=== PATIENT | male | born 1935 | race Caucasian/White ===

== ENCOUNTER 2016-04-26 08:17 | Inpatient (IN) ==
--- NOTE | 2016-04-26 08:29 | Emergency Department Note ---
Disposition Clinical Impression: Small bowel obstruction Disposition: Admitted As Inpatient Condition: Fair Referrals: Bobby Collado Jr, MD [Primary Care Provider] - Time of Disposition: 10:01 Abdominal Pain HPI - General Stated Complaint: Constipation Time Seen by Provider: 04/26/16 08:24 Source: patient Mode of arrival: ambulatory Limitations: no limitations Nursing Notes Reviewed: Yes Vital Signs Reviewed: Yes - History of Present Illness HPI Narrative: 81-year-old male who comes in complaining of abdominal pain. Patient had a previous history of bowel obstruction requiring surgery about a year and a half ago. Said increasing pain over the last day. The patient states he has had multiple abdominal surgeries and has adhesions. Review of records show that the patient had abdominal surgery in October 2014 for small bowel obstruction. Pt Subjective Complaint: abdominal pain Onset (ago): day(s) Consistency: constant Location: diffuse Pain Severity: moderate Quality: aching Radiation: none Migration to: no migration Improves with: nothing Worsens with: nothing Associated symptoms: Reports: nausea, constipation - Related Data Home Medications Medication Instructions Recorded Confirmed Allopurinol [Zyloprim 300 MG] 300 mg PO Q48H 10/08/14 11/28/15 Allopurinol [Zyloprim] 600 mg PO Q48H 10/08/14 11/28/15 Amitriptyline [Elavil] 50 mg PO HS 10/08/14 11/28/15 Aspirin 81 mg PO DAILY 10/08/14 11/28/15 Calcitriol [Rocaltrol] 0.5 mcg PO DAILY 10/08/14 11/28/15 ClonazePAM [Klonopin] 1 mg PO HS 10/08/14 11/28/15 Furosemide [Lasix] 40 mg PO DAILY 10/08/14 11/28/15 Glimepiride [Amaryl] 4 mg PO DAILY 10/08/14 11/28/15 Linagliptin [Tradjenta] 5 mg PO DAILY 10/08/14 11/28/15 Simvastatin [Zocor] 10 mg PO DAILY 10/08/14 11/28/15 Warfarin [Coumadin] 3 mg PO AD 10/08/14 11/28/15 Warfarin [Coumadin] 6 mg PO AD 10/08/14 11/28/15 Amlodipine [Norvasc] 5 mg PO DAILY 11/28/15 11/28/15 Hydrocodone/Acetaminophen 1 tab PO Q8H PRN 11/28/15 11/28/15 [Hydrocodon-Acetaminophen 5-325] Insulin Glargine,Hum.rec.anlog 56 unit SQ HS 11/28/15 11/28/15 [Lantus Solostar] Previous Rx's Medication Instructions Recorded Lisinopril [Zestril] 5 mg PO DAILY #30 tablet 10/22/14 Metoprolol [Lopressor] 25 mg PO BID #60 tablet 10/22/14 Cephalexin [Keflex] 500 mg PO BID #20 capsule 12/01/15 Tamsulosin [Flomax] 0.4 mg PO DAILY #30 capsule 12/01/15 Allergies Allergy/AdvReac Type Severity Reaction Status Date / Time ibuprofen [From Motrin] Allergy Itching Verified 10/08/14 08:50 Constitutional: Denies: fever, chills, weakness, weight change Eyes: Denies: eye pain, eye discharge, vision change ENT ED: Denies: ear pain, throat pain, dental pain, hearing loss, epistaxis, congestion, dysphagia Cardiovascular: Denies: chest pain, palpitations, dyspnea on exertion, edema, syncope Respiratory: Denies: cough, dyspnea, wheezes, hemoptysis, stridor Gastrointestinal: Reports: abdominal pain, constipation. Denies: nausea, vomiting, diarrhea, hematemesis, melena, hematochezia Genitourinary: Denies: urgency, dysuria, frequency, hematuria Musculoskeletal: Denies: back pain, neck pain, arthralgia, myalgia Integumentary: Denies: rash, abrasion, lesions Neurological: Denies: headache, weakness, numbness, paresthesias, confusion, abnormal gait, vertigo Psychiatric: Denies: anxiety, depression, suicidal thoughts, homicidal thoughts , auditory hallucinations, visual hallucinations Endocrine: Denies: fatigue Hematological/Lymphatic: Denies: easy bleeding, easy bruising Allergic/Immunologic: Denies: facial swelling, urticaria Abdominal Pain PMH - Past Medical History Medical history: Reports: atrial fibrillation, CHF, CVA, diabetes, hyperlipidemia, hypertension, myocardial infarction, renal disease, other Psychiatric history: Reports: no psych history - Social History Smoking status: Former smoker Alcohol use: Reports: none Drug use: Reports: none Physical Exam - General Limitations: no limitations General appearance: alert, in no apparent distress - Head Head exam: atraumatic, normocephalic, normal inspection - Eye Eye exam: Present: normal appearance, PERRL, EOMI - ENT ENT exam: normal exam, normal oropharynx, mucous membranes moist - Neck Neck exam: Present: normal inspection, full ROM, trachea midline - Chest Chest inspection: Present: normal inspection, symmetric chest wall rise - Respiratory Respiratory exam: Present: normal lung sounds bilaterally - Cardiovascular Cardiovascular exam: Present: regular rate, normal rhythm, normal heart sounds - Abdominal Exam Abdominal exam: Present: tenderness. Absent: guarding, rebound Abdominal tenderness: Present: diffuse - Extremities Exam Extremities exam: Present: normal inspection, full ROM. Absent: tenderness, pedal edema - Expanded Lower Extremity Exam Neurovascular/Tendon exam: Absent: motor deficit, sensory deficit, tendon deficit Gait: observed and normal - Back Exam Back exam: Present: normal inspection, full ROM. Absent: tenderness - Neurological Exam Neurological exam: Present: alert, oriented X3 - Psychiatric Psychiatric exam: Present: normal affect, normal mood - Skin Skin exam: Present: warm, dry, intact, normal color Course - Reevaluation(s) Reevaluation #1: 81-year-old gentleman with a history of previous small bowel obstruction secondary to adhesions comes in with increasing abdominal pain. CT is consistent with a small bowel obstruction likely related to adhesions. Surgical consultation obtained patient will be admitted to the hospitalist. Time: 09:59 - Consultations Consultation #1: Discussed with Dr. Reyes, admitted to hospitalist he will consult. Time: 09:58 Consultation #2: Discussed with Dr. Salcedo, admit. Time: 10:01 Vital Signs Temperature 97.4 F L 04/26/16 08:26 Pulse Rate 103 04/26/16 08:26 Respiratory Rate 18 04/26/16 08:26 Blood Pressure 155/95 04/26/16 08:26 O2 Sat by Pulse Oximetry 96 04/26/16 08:26 Temperature 97.4 F L 04/26/16 08:26 Pulse Rate 103 04/26/16 08:26 Respiratory Rate 18 04/26/16 08:26 Blood Pressure 155/95 04/26/16 08:26 O2 Sat by Pulse Oximetry 96 04/26/16 08:26 Oxygen Delivery Oxygen Delivery Room Air Abdominal Pain - Lab Data Lab results reviewed: Yes I reviewed the patient's lab results. Result diagrams: 04/26/16 08:41 04/26/16 08:41 Lab Results 04/26/16 04/26/16 04/26/16 Range/Units 08:26 08:41 08:41 WBC 15.2 H (4.3-11.1) K/mcL RBC 5.99 H (4.19-5.50) M/mcL Hgb 18.0 H (12.9-16.9) g/dL Hct 54.4 H (37.5-50.1) % MCV 90.8 (83.0-100.0) fL MCH 30.1 (28.0-33.3) pg MCHC 33.1 (31.6-35.5) g/dL RDW 15.8 H (11.5-14.5) % Plt Count 155 (140-400) K/mcL MPV 9.9 (9.4-12.4) fL Immature Gran % 0.5 (0-4) % Seg Neutrophils % 92.1 % Lymphocytes % 3.8 % Monocytes % 3.3 % Eosinophils % 0.0 % Basophils % 0.3 % Neutrophils # 14.0 H (1.6-8.9) K/mcL Lymphocytes # 0.6 (0.6-4.6) K/mcL Monocytes # 0.5 (0.0-1.3) K/mcL Eosinophils # 0.0 (0.0-0.6) K/mcL Basophils # 0.1 (0.0-0.2) K/mcL Sodium 136 (136-145) mEq/L Potassium 4.5 (3.5-4.5) mEq/L Chloride 101 (98-109) mEq/L Carbon Dioxide 19 (19-29) mEq/L BUN 27 H (8-26) mg/dL Creatinine 2.15 H (0.72-1.25) mg/dL Est GFR ( Amer) 36 L (> 60) Est GFR (Non-Af Amer) 30 L (> 60) BUN/Creatinine Ratio 13 (6-26) Glucose 395 H (70-99) mg/dL Calculated Osmolality 304 H (280-300) Calcium 11.1 H (8.6-10.8) mg/dL Total Bilirubin 1.1 (0.2-1.2) mg/dL Direct Bilirubin 0.4 (0.0-0.5) mg/dL Indirect Bilirubin 0.7 (0.0-1.2) mg/dL AST 23 (5-34) Units/L ALT 26 (0-55) Units/L Alkaline Phosphatase 75 (38-126) Units/L Serum Total Protein 8.3 (6.0-8.3) g/dL Albumin 4.3 (3.5-5.0) g/dL Globulin 4.0 H (2.4-3.5) g/dL Albumin/Globulin Ratio 1.1 (1.1-2.2) Amylase 43 (25-125) Units/L Lipase 24 (8-78) Units/L Urine Color Yellow (Yellow) Urine Clarity Clear (Clear) Urine pH 6.0 (5.0-8.0) pH Units Ur Specific [place] > 1.030 H (1.010-1.025) Urine Protein 30 H (Neg-Trace) mg/dL Urine Glucose (UA) >=1000 H (Normal) mg/dL Urine Ketones 15 H (Negative) mg/dL Urine Blood Small H (Negative) Urine Nitrite Negative (Negative) Urine Bilirubin Negative (Negative) Urine Urobilinogen Normal (Normal) mg/dL Ur Leukocyte Esterase Trace H (Negative) Urine Microscopic RBC 3-5 H (0-3) per hpf Urine Microscopic WBC 15-30 H (0-3) per hpf Ur Squamous Epith Cells Moderate H (None-Few) per lpf Urine Bacteria Few (None-Few) per hpf Hyaline Casts None Seen (None-Few) per lpf Ur Culture Indicated? YES A (NO) - Radiology Data Radiology results reviewed: Yes I reviewed the patient's radiology results. Abdomen/Pelvis CT 04/26/16 08:27 IMPRESSION: 1. Small bowel obstruction with a transition point within the mid ileum within the right mid abdomen. The source of the obstruction is not clearly evident; however, may be due to adhesions given the previous abdominal surgery. 2. No free intraperitoneal air. 3. Status post right nephrectomy. D/ / 04/26/2016 09:17:10 Josué Trujillo MD / jeffery Interpreting Provider: Josué Trujillo MD
[2016-04-26 08:49] LABS: Basophils # 0.1 K/mcL (0.0-0.2); Basophils % 0.3 %; Hematocrit 54.4 % (37.5-50.1); Immature Granulocytes % 0.5 % (0-4); Lymphocytes # 0.6 K/mcL (0.6-4.6); Lymphocytes % 3.8 %; Mean Corpuscular HGB Conc 33.1 g/dL (31.6-35.5); Mean Corpuscular Hemoglobin 30.1 pg (28.0-33.3); Mean Corpuscular Volume 90.8 fL (83.0-100.0); Mean Platelet Volume 9.9 fL (9.4-12.4); Monocytes # 0.5 K/mcL (0.0-1.3); Monocytes % 3.3 %; Platelet Count 155 K/mcL (140-400); Red Blood Count 5.99 M/mcL (4.19-5.50); Red Cell Distribution Width 15.8 % (11.5-14.5); Segmented Neutrophils % 92.1 %
[2016-04-26 08:51] LABS: Bilirubin,Urine Negative (Negative); Blood,Urine Small (Negative); Clarity,Urine Clear (Clear); Color,Urine Yellow (Yellow); Glucose,Urine (UA) >=1000 mg/dL (Normal); Ketones,Urine 15 mg/dL (Negative); Leukocyte Esterase,Urine Trace (Negative); Nitrite,Urine Negative (Negative); Protein,Urine 30 mg/dL (Neg-Trace); Specific Gravity,Urine > 1.030 (1.010-1.025); Urobilinogen,Urine Normal (Normal)
[2016-04-26 08:54] LABS: Bacteria,Urine Few per hpf (None-Few); Hyaline Casts,Urine None Seen per lpf (None-Few); Squamous Epithelial Cell,Urine Moderate per lpf (None-Few); WBC,Urine 15-30 per hpf (0-3)
[2016-04-26 09:07] LABS: Albumin 4.3 g/dL (3.5-5.0); Albumin/Globulin Ratio 1.1 (1.1-2.2); Bilirubin,Direct 0.4 mg/dL (0.0-0.5); Bilirubin,Indirect 0.7 mg/dL (0.0-1.2); Bilirubin,Total 1.1 mg/dL (0.2-1.2); Calcium 11.1 mg/dL (8.6-10.8); Potassium 4.5 mEq/L (3.5-4.5); Total Protein 8.3 g/dL (6.0-8.3)
[2016-04-26] MEDS ORDERED: *HR* HYDROmorphone 2 MG/ML SYRINGE IVP ONE (09:38)
[2016-04-26] MEDS ORDERED: Ondansetron ODT 4 MG TAB.RAPDIS SL ONE (09:38)
[2016-04-26] MEDS ORDERED: *HR* Morphine 2 MG/ML SYRINGE IVP PRN (10:10)
[2016-04-26] MEDS ORDERED: Naloxone 0.4 MG/ML INJ IVP PRN (10:10)
[2016-04-26] MEDS ORDERED: Dextrose Gel 15 GM PO PRN ×2 (10:12)
[2016-04-26] MEDS ORDERED: D5% in Water 1,000 ML IV PRN (10:12)
[2016-04-26] MEDS ORDERED: *HR* Dextrose 50 % in Water (Syg) 50 ML SYRINGE IVP PRN (10:12)
[2016-04-26 10:13] LABS: INR 2.8; Prothrombin Time 31.7 Seconds (9.4-12.1)
--- NOTE | 2016-04-26 11:09 | Internal Med History&Physical ---
Date of Encounter: 04/26/16 Time of Encounter: 10:45 Assessment and Plan (1) Small bowel obstruction Current visit: Yes Status: Acute Acute small bowel obstruction per CT. Admit inpatient. Nothing by mouth. NG tube to low intermittent suction. Consult surgery and follow recommendations. Patient at high risk for complications from this condition including bowel strangulation. Pain control with IV medications. (2) Chronic a-fib Current visit: Yes Status: Chronic Rate controlled and in sinus rhythm currently. On anticoagulation with Coumadin. INR is 2.8. (3) CAD (coronary artery disease) Current visit: Yes Status: Chronic Continue home medications when patient is able to take pills. For now patient does not have any chest pain. Qualifiers: Coronary Disease-Associated Artery/Lesion type: [place] artery [place] vs. transplanted heart: [place] heart Associated angina: without angina Qualified Code(s): I25.10 - Atherosclerotic heart disease of [place] coronary artery without angina pectoris (4) HTN (hypertension) Current visit: Yes Status: Chronic Monitor blood pressure. Will use intravenous medications to control blood pressure when patient is nothing by mouth. Qualifiers: Hypertension type: essential hypertension Qualified Code(s): I10 - Essential (primary) hypertension (5) HLD (hyperlipidemia) Current visit: No Status: Chronic Resume simvastatin and patient is able to take medications again. Qualifiers: Hyperlipidemia type: mixed hyperlipidemia Qualified Code(s): E78.2 - Mixed hyperlipidemia (6) Chronic kidney disease (CKD) Current visit: No Status: Chronic Chronic kidney disease stage III. Creatinine appears to be at baseline. Qualifiers: Chronic kidney disease stage: stage 3 (moderate) Qualified Code(s): N18.3 - Chronic kidney disease, stage 3 (moderate) Internal Medicine - H&P: HPI Chief complaint: Abdominal pain and distention Admitted From: Emergency Dept Plans for Post Hospital Care: Transfer [facility] History of present illness: Mr. Parrish is a 81 year old male with history of coronary artery disease status post CABG, type 2 diabetes mellitus, hypertension, hyperlipidemia, atrial fibrillation on anticoagulation with warfarin and chronic kidney disease presented to the ER with complaints of abdominal pain nausea and vomiting. His symptoms began yesterday evening. He has been having abdominal distention since then. He had a small bowel movement late last night. However he did not improve his symptoms. He says the pain is moderate and diffuse in his abdomen without any radiation. No relation to diet. Patient has not eaten anything since yesterday evening before his pain started. He denies any blood in his stools or when he threw up. He has had prior episodes of small bowel obstruction requiring surgery. He denies any fevers chills or sweats. No chest pain or palpitations. Past Med Surg Social Fam HX - Past Medical History Attestation: Yes The following information was validated with the patient. Medical history: atrial fibrillation, CHF, CVA, diabetes, hyperlipidemia, hypertension, myocardial infarction, renal disease, other Psychiatric history: no psych history - Past Surgical History Surgical History: cholecystectomy, coronary bypass (CABG), pacemaker/AICD, other - Social History Smoking Status: Former smoker Smokeless Tobacco Status: No Alcohol use: none Drug use: none - Family History Father Family Member Ethnicity: Non- Living Status: Hx Family Cardiac Disorders: Yes Hx Family Respiratory Disorders: No Hx Family Cancer: No Hx Family GI Disorders: No Hx Family Endocrine Disorder: Yes Hx Family Neuromuscular Disorders: No Hx Family Neurologic Disorders: No Hx Family HEENT Disorders: No Hx Family Autoimmune Disorders: No Internal Medicine - H&P: Meds Allopurinol [Zyloprim 300 MG] 300 mg PO Q48H 10/08/14 [History] Allopurinol [Zyloprim] 600 mg PO Q48H 10/08/14 [History] Amitriptyline [Elavil] 50 mg PO HS 10/08/14 [History] Aspirin 81 mg PO DAILY 10/08/14 [History] Calcitriol [Rocaltrol] 0.5 mcg PO MOWEFR 10/08/14 [History] ClonazePAM [Klonopin] 1 mg PO HS 10/08/14 [History] Furosemide [Lasix] 40 mg PO DAILY PRN 10/08/14 [History] Glimepiride [Amaryl] 4 mg PO DAILY 10/08/14 [History] Linagliptin [Tradjenta] 5 mg PO DAILY 10/08/14 [History] Simvastatin [Zocor] 10 mg PO DAILY 10/08/14 [History] Lisinopril [Zestril] 5 mg PO DAILY #30 tablet 10/22/14 [Rx] Metoprolol [Lopressor] 25 mg PO BID #60 tablet 10/22/14 [Rx] Amlodipine [Norvasc] 5 mg PO DAILY 11/28/15 [History] Hydrocodone/Acetaminophen [Hydrocodon-Acetaminophen 5-325] 1 tab PO Q8H PRN [History] Insulin Glargine,Hum.rec.anlog [Lantus Solostar] 58 unit SQ HS 11/28/15 [History ] Tamsulosin [Flomax] 0.4 mg PO DAILY #30 capsule 12/01/15 [Rx] Warfarin [Coumadin] 6 mg PO SUMOWEFRSA 04/26/16 [History] Warfarin [Coumadin] 9 mg PO TUTH 04/26/16 [History] Allergies ibuprofen [From Motrin] Allergy (Verified 10/08/14 08:50) Itching All Systems PM: A 10-system review of systems was performed and is negative for pertinent findings except as documented above in the HPI. - Constitutional Constitutional: anorexia, malaise, no chills, no fever(s), no night sweats - EENT Eyes: no change in vision, no discharge, no pain, no photophobia Ears: no ear discharge, no ear pain, no tinnitus Nose, mouth and throat: no dysphagia, no nasal discharge, no neck pain, no sore throat - Cardiovascular Cardiovascular ROS IM: no chest pain, no diaphoresis, no dyspnea, no lightheadedness, no palpitations, no syncope - Respiratory Respiratory: no cough, no dyspnea, no wheezing, no excessive phlegm production - Gastrointestinal Gastrointestinal: abdominal pain, bloating, cramping, nausea, vomiting, no diarrhea, no hematemesis, no hematochezia, no melena - Musculoskeletal Musculoskeletal ROS IM: no numbness, no tingling - Integumentary Integumentary IM: no rash, no unusual bruising - Neurological Neurological ROS: no confusion, no convulsions, no focal weakness, no numbness, no tingling, no tremor(s) - Hematologic/Lymphatic Hematologic/Lymphatic: no easy bruising - Constitutional Vitals: Temp Pulse Resp BP Pulse Ox 97.4 F L 103 18 155/95 96 04/26/16 08:26 04/26/16 08:26 04/26/16 08:26 04/26/16 08:26 04/26/16 08:26 General appearance: Present: cooperative, A&O X 3, answers questions appropriately - Eye Eye exam: Present: EOMI, PERRL, conjuntiva pink, sclera anicteric - Neck Neck exam general surgery: Present: supple, trachea midline. Absent: lymphadenopathy - Respiratory Respiratory exam: Present: CTAB. Absent: accessory muscle use, rales, rhonchi, wheezes - Cardiovascular Cardiovascular exam: Present: RRR, +S1, +S2. Absent: diastolic murmur, gallop, rubs, systolic murmur - GI/Abdominal GI/Abdominal exam: Present: diminished bowel sounds (and hollow), distended, soft, no peritoneal signs. Absent: tenderness - Extremities Exam Extremities exam: Present: warm, radial pulses palpable and symetrical. Absent : calf tenderness, cyanotic, pedal edema - Neurological Exam Neurological exam: Present: alert, CN II-XII intact, oriented X3, no focal deficits. Absent: facial droop, speech deficit - Skin Skin exam: Present: dry, intact Internal Med - H&P Results - Labs CBC & Chem 7: 04/26/16 08:41 04/26/16 08:41 - Impressions ITS Impressions KUB X-Ray 04/26/16 10:18 IMPRESSION: NG tube extends into the distal stomach. D/ / Stefano Nieves MD / Stefano Nieves MD Interpreting Provider: Stefano Nieves MD - Attending Attestation This document has been at least partially created by [employer] voice recognition technology by Dr. Salcedo. Errors in grammar, wording or other phrases may exist. If errors are found after the documentation is signed, they will be addressed individually in the addendum section of this document when appropriate.
[2016-04-26] MEDS: Insulin LISPRO 300 UNITS/3 ML VIAL SQ SCH ×3 (13:28→21:11)
[2016-04-26] MEDS: 0.9 % Sodium Chloride 1,000 ML IVC SCH ×2 (13:29→23:10)
[2016-04-27] MEDS ORDERED: Ipratropium/Albuterol Neb 3 ML IH PRN (01:29)
[2016-04-27] MEDS: Insulin LISPRO 300 UNITS/3 ML VIAL SQ SCH ×6 (02:03→21:21)
[2016-04-27 06:11] LABS: Basophils # 0.1 K/mcL (0.0-0.2); Basophils % 0.6 %; Eosinophils # 0.3 K/mcL (0.0-0.6); Eosinophils % 3.6 %; Hematocrit 48.6 % (37.5-50.1); Immature Granulocytes % 0.2 % (0-4); Lymphocytes # 1.7 K/mcL (0.6-4.6); Mean Corpuscular HGB Conc 33.7 g/dL (31.6-35.5); Mean Corpuscular Hemoglobin 30.9 pg (28.0-33.3); Mean Corpuscular Volume 91.7 fL (83.0-100.0); Mean Platelet Volume 10.5 fL (9.4-12.4); Monocytes # 0.8 K/mcL (0.0-1.3); Monocytes % 8.8 %; Neutrophils # 5.7 K/mcL (1.6-8.9); Platelet Count 126 K/mcL (140-400); Red Cell Distribution Width 15.8 % (11.5-14.5); Segmented Neutrophils % 66.8 %
[2016-04-27 06:17] LABS: Hemoglobin 16.4 g/dL (12.9-16.9)
[2016-04-27 06:25] LABS: Potassium 4.3 mEq/L (3.5-4.5)
[2016-04-27 06:26] LABS: Calcium 9.4 mg/dL (8.6-10.8)
[2016-04-27] MEDS: Pantoprazole 40 MG VIAL IVP SCH (08:54)
[2016-04-27] MEDS ORDERED: 0.9 % Sodium Chloride 250 ML IVC ONE (10:01)
[2016-04-27] MEDS: 0.9 % Sodium Chloride 1,000 ML IVC SCH (10:08)
--- NOTE | 2016-04-27 10:17 | General Surgery Consult Note ---
Date of Encounter: 04/27/16 Time of Encounter: 10:03 History of Present Illness Consult date: 04/26/16 Requesting physician: Santos De La O History of present illness: This is a delayed Surgical Note 81-year-old male well known to me. The patient was examined yesterday well as today. Significant medical history of recurrent small bowel obstruction requiring exploratory celiotomy, stented lysis of adhesions. This was last completed . Patient also has chronic atrial fibrillation for which he is anticoagulated, hypertension, hyperlipidemia, chronic kidney disease, coronary artery disease with previous ID, CHF, CVA, diabetes mellitus (insulin-dependent) Surgical history: Previous cholecystectomy, CABG 3, pacemaker/AICD, right nephrectomy, multiple transabdominal surgeries for aortic aneurysm and repeated small bowel obstruction. The patient was admitted 04/26/16 after presenting to the emergency department with recurrent abdominal pain with radiologic evidence of a recurrent small bowel obstruction. At the time of my examination yesterday the patient was in no acute distress. Today the patient is tender right side of abdomen without discernible intra-abdominal mass. No rebound. Bowel sounds remain hypoactive. The patient has not passed flatus or moved his bowels since admission. NG had been established on presentation to the emergency department, recorded drainage approximately 500 mL. The patient's abdomen remains slightly distended. The CT completed yesterday was personally reviewed as was the acute abdominal series completed this morning. Both studies show fluid-filled, dilated loops small bowel. The CT demonstrates a transition to decompressed bowel in the right lower quadrant consistent with a recurrent small bowel obstruction. Based on my clinical findings yesterday and today, I will initiate a small bowel follow-through using Gastrografin. The patient's comorbidities increase his surgical risks and it is anticipated that repeat auditory celiotomy will require an extended lysis of adhesions with considerable risk of injury to the adjacent small bowel. Patient's lab work still indicate a moderate degree of dehydration as well as anticoagulation. Recommendations: Small bowel follow-through using Gastrografin - can be completed through the existing NG. Reversal of anticoagulation in preparation for surgery should the SBFT demonstrate a recurrent SBO. Patient is aware of my findings and recommendations. Past Med Surg Social Fam HX - Past Medical History Medical history: atrial fibrillation, CHF, CVA, diabetes, hyperlipidemia, hypertension, myocardial infarction, renal disease, other Psychiatric history: no psych history - Past Surgical History Surgical History: cholecystectomy, coronary bypass (CABG), pacemaker/AICD, other - Social History Smoking Status: Former smoker Smokeless Tobacco Status: No Alcohol use: none Drug use: none - Family History Father Family Member Ethnicity: Non- Living Status: Hx Family Cardiac Disorders: Yes Hx Family Respiratory Disorders: No Hx Family Cancer: No Hx Family GI Disorders: No Hx Family Endocrine Disorder: Yes Hx Family Neuromuscular Disorders: No Hx Family Neurologic Disorders: No Hx Family HEENT Disorders: No Hx Family Autoimmune Disorders: No Medications and Allergies Allopurinol [Zyloprim 300 MG] 300 mg PO Q48H 10/08/14 [History] Allopurinol [Zyloprim] 600 mg PO Q48H 10/08/14 [History] Amitriptyline [Elavil] 50 mg PO HS 10/08/14 [History] Aspirin 81 mg PO DAILY 10/08/14 [History] Calcitriol [Rocaltrol] 0.5 mcg PO MOWEFR 10/08/14 [History] ClonazePAM [Klonopin] 1 mg PO HS 10/08/14 [History] Furosemide [Lasix] 40 mg PO DAILY PRN 10/08/14 [History] Glimepiride [Amaryl] 4 mg PO DAILY 10/08/14 [History] Linagliptin [Tradjenta] 5 mg PO DAILY 10/08/14 [History] Simvastatin [Zocor] 10 mg PO DAILY 10/08/14 [History] Lisinopril [Zestril] 5 mg PO DAILY #30 tablet 10/22/14 [Rx] Metoprolol [Lopressor] 25 mg PO BID #60 tablet 10/22/14 [Rx] Amlodipine [Norvasc] 5 mg PO DAILY 11/28/15 [History] Hydrocodone/Acetaminophen [Hydrocodon-Acetaminophen 5-325] 1 tab PO Q8H PRN [History] Insulin Glargine,Hum.rec.anlog [Lantus Solostar] 58 unit SQ HS 11/28/15 [History ] Tamsulosin [Flomax] 0.4 mg PO DAILY #30 capsule 12/01/15 [Rx] Warfarin [Coumadin] 6 mg PO SUMOWEFRSA 04/26/16 [History] Warfarin [Coumadin] 9 mg PO TUTH 04/26/16 [History] Allergies ibuprofen [From Motrin] Allergy (Verified 10/08/14 08:50) Itching Review of Systems All systems PM: A 10-system review of systems was performed and is negative for pertinent findings except as documented above in the HPI. General Surgery Exam Initial Vital Signs Temp Pulse Resp BP Pulse Ox 97.4 F L 103 18 155/95 96 04/26/16 08:26 04/26/16 08:26 04/26/16 08:26 04/26/16 08:26 04/26/16 08:26 Exam Initial Vital Signs Temp Pulse Resp BP Pulse Ox 97.4 F L 103 18 155/95 96 04/26/16 08:26 04/26/16 08:26 04/26/16 08:26 04/26/16 08:26 04/26/16 08:26 Results - Labs 04/27/16 05:07 04/27/16 05:07 Abnormal lab results RDW 15.8 % (11.5-14.5) H 04/27/16 05:07 Plt Count 126 K/mcL (140-400) L 04/27/16 05:07 PT 31.7 Seconds (9.4-12.1) H 04/26/16 08:41 Creatinine 1.77 mg/dL (0.72-1.25) H 04/27/16 05:07 Est GFR ( Amer) 45 (> 60) L 04/27/16 05:07 Est GFR (Non-Af Amer) 37 (> 60) L 04/27/16 05:07 Glucose 169 mg/dL (70-99) H 04/27/16 05:07 POC Glucose 133 (58-89) H 04/27/16 04:06 Calculated Osmolality 302 (280-300) H 04/27/16 05:07 Globulin 4.0 g/dL (2.4-3.5) H 04/26/16 08:41 Ur Specific [place] > 1.030 (1.010-1.025) H 04/26/16 08:26 Urine Protein 30 mg/dL (Neg-Trace) H 04/26/16 08:26 Urine Glucose (UA) >=1000 mg/dL (Normal) H 04/26/16 08:26 Urine Ketones 15 mg/dL (Negative) H 04/26/16 08:26 Urine Blood Small (Negative) H 04/26/16 08:26 Ur Leukocyte Esterase Trace (Negative) H 04/26/16 08:26 Urine Microscopic RBC 3-5 per hpf (0-3) H 04/26/16 08:26 Urine Microscopic WBC 15-30 per hpf (0-3) H 04/26/16 08:26 Ur Squamous Epith Cells Moderate per lpf (None-Few) H 04/26/16 08:26 Ur Culture Indicated? YES (NO) A 04/26/16 08:26 Diabetes panel 04/27/16 Range/Units 05:07 Sodium 142 (136-145) mEq/L Potassium 4.3 (3.5-4.5) mEq/L Chloride 109 (98-109) mEq/L Carbon Dioxide 24 (19-29) mEq/L BUN 24 (8-26) mg/dL Creatinine 1.77 H (0.72-1.25) mg/dL Glucose 169 H (70-99) mg/dL Calcium 9.4 D (8.6-10.8) mg/dL Calcium panel 04/27/16 Range/Units 05:07 Calcium 9.4 D (8.6-10.8) mg/dL Pituitary panel 04/27/16 Range/Units 05:07 Sodium 142 (136-145) mEq/L Potassium 4.3 (3.5-4.5) mEq/L Chloride 109 (98-109) mEq/L Carbon Dioxide 24 (19-29) mEq/L BUN 24 (8-26) mg/dL Creatinine 1.77 H (0.72-1.25) mg/dL Glucose 169 H (70-99) mg/dL Calcium 9.4 D (8.6-10.8) mg/dL Adrenal panel 04/27/16 Range/Units 05:07 Sodium 142 (136-145) mEq/L Potassium 4.3 (3.5-4.5) mEq/L Chloride 109 (98-109) mEq/L Carbon Dioxide 24 (19-29) mEq/L BUN 24 (8-26) mg/dL Creatinine 1.77 H (0.72-1.25) mg/dL Glucose 169 H (70-99) mg/dL Calcium 9.4 D (8.6-10.8) mg/dL All other labs normal. Consult Discharge Plan - Plan
[2016-04-27 10:19] LABS: INR 2.6; Prothrombin Time 29.4 Seconds (9.4-12.1)
--- NOTE | 2016-04-27 16:51 | Internal Med Progress Note ---
Date of Encounter: 04/27/16 Time of Encounter: 14:00 - Assessment and plan (1) Small bowel obstruction Current Visit: Yes Status: Acute Assessment and plan: Patient with history of recurrent small bowel obstruction requiring exploratory laparotomy with stented lysis of adhesions. Last episode in October 2014. Patient admitted on 04/26/2016 because of severe abdominal pain associated with nausea and vomiting. 04/26: CT abdomen and pelvis revealed small bowel obstruction with a transition point within the mid ileum within the right mid abdomen. 04/27: Small bowel follow-through serious shows rapid transit of contrast that extends to the level of the distal sigmoid colon. Appreciate surgical input. Continue conservative management including NGT with LWIS, IV fluids, and IV morphine. Patient had a bowel movement this morning. (2) Acute worsening of stage 3 chronic kidney disease Current Visit: Yes Status: Acute Assessment and plan: Prerenal secondary to dehydration from his small bowel obstruction. Continue IV fluids. Kidney function is slowly improving. Close monitoring. Avoid nephrotoxic agents. (3) Insulin dependent diabetes mellitus Current Visit: No Status: Chronic Assessment and plan: Patient is nothing by mouth. Continue insulin sliding scale every 4 hours. (4) Chronic a-fib Current Visit: Yes Status: Chronic Assessment and plan: Heart rate is adequate. Patient placement upper 25 mg twice a day at home. I will start IV Lopressor as needed given patient has NGT and is NPO. Holding home dose of Coumadin in case patient needs surgery. INR still therapeutic at 2.6. (5) CAD (coronary artery disease) Current Visit: Yes Status: Chronic Assessment and plan: Stable. We will resume aspirin, metoprolol and simvastatin when patient is eating. Qualifiers: Coronary Disease-Associated Artery/Lesion type: [place] artery [place] vs. transplanted heart: [place] heart Associated angina: without angina Qualified Code(s): I25.10 - Atherosclerotic heart disease of [place] coronary artery without angina pectoris (6) HTN (hypertension) Current Visit: Yes Status: Chronic Assessment and plan: Blood pressure is adequate. Patient is nothing by mouth. Continue IV hydralazine as needed. Qualifiers: Hypertension type: essential hypertension Qualified Code(s): I10 - Essential (primary) hypertension (7) Peripheral vascular disease of extremity Current Visit: No Status: Chronic - Subjective Interval history: Patient has alert bowel movement. He is still has abdominal pain but this improved compared to admission. NG tube drainage 400. - Constitutional Vitals: Temp Pulse Resp BP Pulse Ox 98.3 F 76 17 116/97 98 04/27/16 15:03 04/27/16 15:03 04/27/16 15:03 04/27/16 15:03 04/27/16 15:03 General appearance: Present: cooperative, A&O X 3, pleasant, no acute distress, answers questions appropriately - Eye Eye exam: Present: PERRL, sclera anicteric - ENT Additional comments: NGT in place - Neck Neck exam general surgery: Present: supple, trachea midline. Absent: lymphadenopathy - Respiratory Respiratory exam: Present: CTAB - Cardiovascular Cardiovascular exam: Present: RRR - GI/Abdominal GI/Abdominal exam: Present: normal bowel sounds, soft. Absent: distended, tenderness - Extremities Exam Extremities exam: Present: pedal edema - Back Exam Back exam: Absent: CVA tenderness (L), CVA tenderness (R) - Neurological Exam Neurological exam: Present: alert, oriented X3, no focal deficits, strengths equal and symetr throughout. Absent: facial droop, speech deficit - Skin Skin exam: Absent: rash Internal Medicine: Result - Labs CBC & Chem 7: 04/27/16 05:07 04/27/16 05:07 Labs: Short CBC 04/27/16 Range/Units 05:07 WBC 8.5 (4.3-11.1) K/mcL Hgb 16.4 D (12.9-16.9) g/dL Hct 48.6 (37.5-50.1) % Plt Count 126 L (140-400) K/mcL Neutrophils # 5.7 (1.6-8.9) K/mcL BMP 04/27/16 05:07 Sodium 142 Potassium 4.3 Chloride 109 Carbon Dioxide 24 BUN 24 Creatinine 1.77 H Glucose 169 H Calcium 9.4 D - ABG Interpretation ABG results: PT/INR, D-dimer PT 29.4 Seconds (9.4-12.1) H 04/27/16 09:47 - Impressions Impressions Chest/Abdomen X-ray 04/27/16 00:01 IMPRESSION: 1. Pacemaker. No acute pulmonary process. 2. NG tube is present. There is a nonobstructive bowel gas pattern by plain film imaging. Refer to the CT exam from 04/26/2016. D/ / 04/27/2016 09:34:09 Khalida Mendoza MD / [email or web address] Interpreting Provider: Khalida Mendoza MD Small Bowel X-Ray 04/27/16 10:01 IMPRESSION: Rapid transit of contrast that extends to the level of the distal sigmoid colon. The small bowel distention may relate to a resolved partial grade small-bowel obstruction or possible superimposed enteritis. There is no complete obstruction or evidence of perforation. D/ / 04/27/2016 13:11:03 Gonzalez Emanuel MD / [email or web address] Interpreting Provider: Gonzalez Emanuel MD Consult Discharge Plan - Plan Referrals: Bobby Collado Jr, MD [Primary Care Provider] -
[2016-04-27] MEDS ORDERED: *HR* Metoprolol 5 MG/5 ML VIAL IVP PRN (17:02)
[2016-04-28] MEDS: Insulin LISPRO 300 UNITS/3 ML VIAL SQ SCH ×5 (00:15→17:02)
[2016-04-28] MEDS: 0.9 % Sodium Chloride 1,000 ML IVC SCH ×3 (00:17→23:08)
[2016-04-28 06:12] LABS: Basophils # 0.1 K/mcL (0.0-0.2); Basophils % 0.6 %; Eosinophils # 0.3 K/mcL (0.0-0.6); Eosinophils % 2.4 %; Hematocrit 51.2 % (37.5-50.1); Hemoglobin 17.3 g/dL (12.9-16.9); Immature Granulocytes % 0.6 % (0-4); Lymphocytes # 1.5 K/mcL (0.6-4.6); Lymphocytes % 14.6 %; Mean Corpuscular HGB Conc 33.8 g/dL (31.6-35.5); Mean Corpuscular Hemoglobin 31.3 pg (28.0-33.3); Mean Corpuscular Volume 92.6 fL (83.0-100.0); Mean Platelet Volume 10.3 fL (9.4-12.4); Monocytes # 0.8 K/mcL (0.0-1.3); Monocytes % 7.3 %; Neutrophils # 7.7 K/mcL (1.6-8.9); Platelet Count 134 K/mcL (140-400); Red Blood Count 5.53 M/mcL (4.19-5.50); Red Cell Distribution Width 16.1 % (11.5-14.5); Segmented Neutrophils % 74.5 %
[2016-04-28 06:16] LABS: Prothrombin Time 22.5 Seconds (9.4-12.1)
[2016-04-28 06:24] LABS: Calcium 9.6 mg/dL (8.6-10.8); Potassium 3.9 mEq/L (3.5-4.5)
[2016-04-28] MEDS: Pantoprazole 40 MG VIAL IVP SCH (09:12)
--- NOTE | 2016-04-28 13:10 | General Surgery Progress Note ---
Date of Encounter: 04/28/16 Time of Encounter: 13:05 Subjective Patient reports: feels better Narrative: General Surgery: patient is afebrile, 98.4; pulse 73,respirations 15, blood pressure 159/86 Patient feeling better, previously noted right sided abdominal pain resolved SBFT showed rapid transit oral contrast thru the small bowel reaching the sigmoid colon in approximately 1 hour Impression: no further evidence SBO possible viral enteritis v enteritis of other etiology. Surgical intervention not likely at this time. Plan: remove NG initiate diet - full liquids ordered Will sign off, call if needed. Thanks for the consultation. Patient instructed to follow up with me approx 2 weeks post discharge. Objective Vital Signs - Last 8 Hours Temp Pulse Resp BP Pulse Ox 04/28/16 10:24 98.4 F 73 15 159/86 95 04/28/16 07:00 98.4 F 57 20 167/77 94 L Intake and Output 04/27/16 04/28/16 04/28/16 23:59 07:59 15:59 Intake Total 1000 / 1000 0 / 0 1179 / 1179 Output Total 0 / 0 425 / 425 500 / 500 Balance 1000 / 1000 -425 / -425 679 / 679 Intake: IV Fluids 1000 / 1000 1179 / 1179 0.9 % Sodium Chloride 1, 1000 / 1000 1179 / 1179 000 ML @ 100 mls/hr IVC . Q10H [facility] Rx#:[id number] Oral 0 / 0 0 / 0 Output: Urine 0 / 0 425 / 425 350 / 350 Gastric Drainage 150 / 150 Other: Meal NPO NPO Stool Size Small Stool Consistency liquid Stool Color Brown Pale Weight 93.6 kg Blood Glucose* 93 163 135 Patient Weight 04/28/16 23:59 Weight 93.6 kg - Labs 04/28/16 05:14 04/28/16 05:14 Diabetes panel 04/28/16 Range/Units 05:14 Sodium 142 (136-145) mEq/L Potassium 3.9 (3.5-4.5) mEq/L Chloride 110 H (98-109) mEq/L Carbon Dioxide 20 (19-29) mEq/L BUN 19 (8-26) mg/dL Creatinine 1.52 H (0.72-1.25) mg/dL Glucose 151 H (70-99) mg/dL Calcium 9.6 (8.6-10.8) mg/dL Calcium panel 04/28/16 Range/Units 05:14 Calcium 9.6 (8.6-10.8) mg/dL Pituitary panel 04/28/16 Range/Units 05:14 Sodium 142 (136-145) mEq/L Potassium 3.9 (3.5-4.5) mEq/L Chloride 110 H (98-109) mEq/L Carbon Dioxide 20 (19-29) mEq/L BUN 19 (8-26) mg/dL Creatinine 1.52 H (0.72-1.25) mg/dL Glucose 151 H (70-99) mg/dL Calcium 9.6 (8.6-10.8) mg/dL Adrenal panel 04/28/16 Range/Units 05:14 Sodium 142 (136-145) mEq/L Potassium 3.9 (3.5-4.5) mEq/L Chloride 110 H (98-109) mEq/L Carbon Dioxide 20 (19-29) mEq/L BUN 19 (8-26) mg/dL Creatinine 1.52 H (0.72-1.25) mg/dL Glucose 151 H (70-99) mg/dL Calcium 9.6 (8.6-10.8) mg/dL Consult Discharge Plan - Plan Referrals: Bobby Collado Jr, MD [Primary Care Provider] -
--- NOTE | 2016-04-28 14:15 | Internal Med Progress Note ---
Date of Encounter: 04/28/16 Time of Encounter: 10:45 - Assessment and plan (1) Small bowel obstruction Current Visit: Yes Status: Acute Assessment and plan: Patient with history of recurrent small bowel obstruction requiring exploratory laparotomy with stented lysis of adhesions. Last episode in October 2014. Patient admitted on 04/26/2016 because of severe abdominal pain associated with nausea and vomiting. 04/26: CT abdomen and pelvis revealed small bowel obstruction with a transition point within the mid ileum within the right mid abdomen. 04/27: Small bowel follow-through series shows rapid transit of contrast that extends to the level of the distal sigmoid colon. clinically improving slowly (having multiple BM and passing gas). Appreciate surgical input. remove NGT. full liquid diet. IV fluids, and IV morphine. (2) Acute worsening of stage 3 chronic kidney disease Current Visit: Yes Status: Acute Assessment and plan: Prerenal secondary to dehydration from small bowel obstruction. Continue IV fluids. Kidney function is slowly improving. Close monitoring. Avoid nephrotoxic agents. (3) Insulin dependent diabetes mellitus Current Visit: No Status: Chronic Assessment and plan: fasting glucose is adequate. Continue insulin sliding scale and diabetic diet. (4) HTN (hypertension) Current Visit: Yes Status: Chronic Assessment and plan: Blood pressure is high. resume amlodipine at 2.5. Continue IV hydralazine as needed. Qualifiers: Hypertension type: essential hypertension Qualified Code(s): I10 - Essential (primary) hypertension (5) Chronic a-fib Current Visit: Yes Status: Chronic Assessment and plan: Heart rate is adequate. Patient placement upper 25 mg twice a day at home. I will start IV Lopressor as needed given patient has NGT and is NPO. Holding home dose of Coumadin in case patient needs surgery. INR still therapeutic at 2.6. (6) CAD (coronary artery disease) Current Visit: Yes Status: Chronic Assessment and plan: Stable. We will resume aspirin, metoprolol and simvastatin when patient is eating. Qualifiers: Coronary Disease-Associated Artery/Lesion type: [place] artery [place] vs. transplanted heart: [place] heart Associated angina: without angina Qualified Code(s): I25.10 - Atherosclerotic heart disease of [place] coronary artery without angina pectoris (7) Peripheral vascular disease of extremity Current Visit: No Status: Chronic - Subjective Interval history: Patient had many bowel movements. He is still has mild abdominal pain. - Constitutional Vitals: Temp Pulse Resp BP Pulse Ox 98.4 F 73 15 159/86 95 04/28/16 10:24 04/28/16 10:24 04/28/16 10:24 04/28/16 10:24 04/28/16 10:24 General appearance: Present: cooperative, A&O X 3, pleasant, no acute distress, answers questions appropriately - Eye Eye exam: Present: PERRL, sclera anicteric - ENT ENT exam: Present: mucous membranes moist - Neck Neck exam general surgery: Present: supple, trachea midline. Absent: normal inspection - Respiratory Respiratory exam: Present: CTAB - Cardiovascular Cardiovascular exam: Present: RRR - GI/Abdominal GI/Abdominal exam: Present: distended (mild diffuse tenderness), hypoactive bowel sounds, soft, no peritoneal signs. Absent: tenderness (mild diffuse tenderness) - Extremities Exam Extremities exam: Absent: pedal edema - Back Exam Back exam: Absent: CVA tenderness (L), CVA tenderness (R) - Neurological Exam Neurological exam: Present: alert, oriented X3, no focal deficits, strengths equal and symetr throughout. Absent: facial droop, speech deficit - Skin Skin exam: Absent: rash Internal Medicine: Result - Labs CBC & Chem 7: 04/28/16 05:14 04/28/16 05:14 Labs: Short CBC 04/28/16 Range/Units 05:14 WBC 10.3 (4.3-11.1) K/mcL Hgb 17.3 H (12.9-16.9) g/dL Hct 51.2 H (37.5-50.1) % Plt Count 134 L (140-400) K/mcL Neutrophils # 7.7 (1.6-8.9) K/mcL BMP 04/28/16 05:14 Sodium 142 Potassium 3.9 Chloride 110 H Carbon Dioxide 20 BUN 19 Creatinine 1.52 H Glucose 151 H Calcium 9.6 - ABG Interpretation ABG results: PT/INR, D-dimer PT 22.5 Seconds (9.4-12.1) H 04/28/16 05:14 - Impressions Impressions Small Bowel X-Ray 04/27/16 10:01 IMPRESSION: Rapid transit of contrast that extends to the level of the distal sigmoid colon. The small bowel distention may relate to a resolved partial grade small-bowel obstruction or possible superimposed enteritis. There is no complete obstruction or evidence of perforation. D/ / 04/27/2016 13:11:03 Gonzalez Emanuel MD / [email or web address] Interpreting Provider: Gonzalez Emanuel MD Consult Discharge Plan - Plan Referrals: Bobby Collado Jr, MD [Primary Care Provider] -
[2016-04-28] MEDS: amLODIPine 5 MG TABLET PO SCH (17:05)
[2016-04-28] MEDS ORDERED: Insulin LISPRO 300 UNITS/3 ML VIAL SQ SCH (21:00)
[2016-04-28] MEDS ORDERED: Temazepam 15 MG CAPSULE PO ONE ×2 (22:53→23:15)
[2016-04-29] MEDS: 0.9 % Sodium Chloride 1,000 ML IVC SCH (03:36)
[2016-04-29 07:30] LABS: Basophils # 0.1 K/mcL (0.0-0.2); Basophils % 0.7 %; Eosinophils # 0.3 K/mcL (0.0-0.6); Eosinophils % 3.5 %; Hematocrit 47.5 % (37.5-50.1); Hemoglobin 15.8 g/dL (12.9-16.9); Immature Granulocytes % 0.3 % (0-4); Lymphocytes # 1.5 K/mcL (0.6-4.6); Lymphocytes % 20.7 %; Mean Corpuscular HGB Conc 33.3 g/dL (31.6-35.5); Mean Corpuscular Hemoglobin 31.3 pg (28.0-33.3); Mean Corpuscular Volume 94.2 fL (83.0-100.0); Mean Platelet Volume 10.2 fL (9.4-12.4); Monocytes # 0.6 K/mcL (0.0-1.3); Monocytes % 7.7 %; Platelet Count 114 K/mcL (140-400); Red Blood Count 5.04 M/mcL (4.19-5.50); Red Cell Distribution Width 15.7 % (11.5-14.5); Segmented Neutrophils % 67.1 %
[2016-04-29 07:40] LABS: BUN/Creatinine Ratio 13 (6-26); Blood Urea Nitrogen 17 mg/dL (8-26); Calcium 9.3 mg/dL (8.6-10.8); Carbon Dioxide 18 mEq/L (19-29); Chloride 113 mEq/L (98-109); Glucose 181 mg/dL (70-99); Magnesium 1.9 mg/dL (1.6-2.6); Osmolality,Calculated 298 (280-300); Sodium 141 mEq/L (136-145); eGFR For African Americans > 60 (> 60); eGFR For Non-African Americans 51 (> 60)
[2016-04-29] MEDS: Insulin LISPRO 300 UNITS/3 ML VIAL SQ SCH ×2 (08:34→08:45)
[2016-04-29 08:38] VITALS: BP 169/92
--- NOTE | 2016-04-29 08:41 | Discharge Summary ---
Date of Encounter: 04/29/16 Time of Encounter: 08:00 - Discharge Diagnosis (1) Small bowel obstruction Priority: Primary Status: Acute (2) Acute worsening of stage 3 chronic kidney disease Priority: Primary Status: Acute (3) Insulin dependent diabetes mellitus Priority: Primary Status: Chronic (4) HTN (hypertension) Priority: Secondary Status: Chronic Qualifiers: Hypertension type: essential hypertension Qualified Code(s): I10 - Essential (primary) hypertension (5) Chronic a-fib Priority: Secondary Status: Chronic (6) CAD (coronary artery disease) Priority: Secondary Status: Chronic Qualifiers: Coronary Disease-Associated Artery/Lesion type: [place] artery [place] vs. transplanted heart: [place] heart Associated angina: without angina Qualified Code(s): I25.10 - Atherosclerotic heart disease of [place] coronary artery without angina pectoris (7) Peripheral vascular disease of extremity Priority: Secondary Status: Chronic - Discharge Medications Prescriptions: Docusate [Colace] 100 mg PO BID PRN #30 capsule PRN Reason: Constipation Home Medications: Allopurinol [Zyloprim 300 MG] 300 mg PO Q48H 10/08/14 [History] Allopurinol [Zyloprim] 600 mg PO Q48H 10/08/14 [History] Amitriptyline [Elavil] 50 mg PO HS 10/08/14 [History] Aspirin 81 mg PO DAILY 10/08/14 [History] Calcitriol [Rocaltrol] 0.5 mcg PO MOWEFR 10/08/14 [History] ClonazePAM [Klonopin] 1 mg PO HS 10/08/14 [History] Furosemide [Lasix] 40 mg PO DAILY PRN 10/08/14 [History] Glimepiride [Amaryl] 4 mg PO DAILY 10/08/14 [History] Linagliptin [Tradjenta] 5 mg PO DAILY 10/08/14 [History] Simvastatin [Zocor] 10 mg PO DAILY 10/08/14 [History] Metoprolol [Lopressor] 25 mg PO BID #60 tablet 10/22/14 [Rx] Amlodipine [Norvasc] 5 mg PO DAILY 11/28/15 [History] Hydrocodone/Acetaminophen [Hydrocodon-Acetaminophen 5-325] 1 tab PO Q8H PRN [History] Insulin Glargine,Hum.rec.anlog [Lantus Solostar] 58 unit SQ HS 11/28/15 [History ] Tamsulosin [Flomax] 0.4 mg PO DAILY #30 capsule 12/01/15 [Rx] Warfarin [Coumadin] 6 mg PO SUMOWEFRSA 04/26/16 [History] Warfarin [Coumadin] 9 mg PO TUTH 04/26/16 [History] Docusate [Colace] 100 mg PO BID PRN #30 capsule 04/29/16 [Rx] Allergies/Adverse Reactions: Allergies ibuprofen [From Motrin] Allergy (Verified 10/08/14 08:50) Itching Date of admission: 04/26/16 10:10 Primary care physician: Bobby Collado Jr, MD - Patient Status Disposition: Home, Self-Care Condition: Good Functional capacity at discharge: independent ambulation Overall status at discharge: patient is progressing back to baseline - Discharge Instructions Instructions: Bowel Obstruction (DC) Follow Up With: Bobby Collado Jr, MD [Primary Care Provider] - 05/07/16 2:00 pm Forms: ED Satisfaction Letter, Work/School Release Additional Instructions: Drink plenty of fluids, at least 2 L/day Check your blood sugars before meal and at bedtime, make a log and bring it to doctors appointment cehck your blood pressure twice daily, make a log and bring numbers to doctors appointment check your INR (coumadin test) in 2 days. - Diet and Activity Activity: resume usual activities as tolerated Diet: diabetic diet, low fat, low cholesterol, low salt diet Interval History: Patient is eating well. No nausea. No vomiting. He is eager to go home. He is having bowel movements and passing gas. Hospital course: Mr. Parrish is a 81 year old male with history of recurrent small bowel obstruction requiring exploratory laparotomy with stented lysis of adhesions. Last episode in October 2014. He also has history of diabetes mellitus, chronic kidney disease stage III, hypertension, atrial fibrillation on anticoagulation with warfarin and CAD. Patient admitted on 04/26/2016 because of severe abdominal pain associated with nausea and vomiting. He was treated for partial small bowel obstruction with conservative therapy including NG tube with intermittent suction, IV fluids, and pain control with morphine. Patient improved clinically, NG tube was removed and he was eating and ambulating well at discharge. 04/26: CT abdomen and pelvis revealed small bowel obstruction with a transition point within the mid ileum within the right mid abdomen. 04/27: Small bowel follow-through series shows rapid transit of contrast that extends to the level of the distal sigmoid colon. He was also noted to have acute worsening of the kidney disease stage III that improved after IV fluid hydration. Lisinopril home dose was held due to acute renal failure. PLAN: Follow-up with primary care physician in one week. Check blood pressure daily. Holding lisinopril due to chronic kidney disease. Continue amlodipine. - Time Spent with Patient Total time spent providing and/or coordinating discharge services: - Constitutional Vitals: Temp Pulse Resp BP Pulse Ox 98.5 F 66 18 169/92 96 04/29/16 08:26 04/29/16 08:26 04/29/16 08:26 04/29/16 08:26 04/29/16 08:26 General appearance: Present: cooperative, A&O X 3, pleasant, no acute distress, answers questions appropriately - Eye Eye exam: Present: PERRL, sclera anicteric - ENT ENT exam: Present: mucous membranes moist - Neck Neck exam general surgery: Present: supple, trachea midline. Absent: lymphadenopathy - Respiratory Respiratory exam: Present: CTAB - Cardiovascular Cardiovascular exam: Present: RRR - GI/Abdominal GI/Abdominal exam: Present: normal bowel sounds, soft. Absent: distended, tenderness - Extremities Exam Extremities exam: Absent: pedal edema - Back Exam Back exam: Absent: CVA tenderness (L), CVA tenderness (R) - Neurological Exam Neurological exam: Present: alert, oriented X3, no focal deficits, strengths equal and symetr throughout. Absent: facial droop, speech deficit - Skin Skin exam: Absent: rash
[2016-04-29] MEDS: amLODIPine 5 MG TABLET PO SCH (08:45)
[2016-04-29] MEDS: Pantoprazole 40 MG VIAL IVP SCH (08:45)
== END 2016-04-29 09:59 | disposition home or self-care (01) | DRG 389 ==
LOC: 3ANU 08:17 → EMEROO 08:17 → SUATTDRO 10:10 → 3ANU 11:20
PROVIDERS: ADMIT Internal Medicine; ATTEND Internal Medicine

== ENCOUNTER 2019-07-24 21:12 | Inpatient (IN) ==
[2019-07-24 22:30] LABS: Basophils # 0.1 K/mcL (0.0-0.2); Basophils % 0.4 %; Eosinophils % 0.2 %; Hematocrit 48.2 % (37.5-50.1); Immature Granulocytes % 0.4 % (0-4); Lymphocytes % 7.3 %; Mean Corpuscular HGB Conc 33.2 g/dL (31.6-35.5); Mean Corpuscular Hemoglobin 30.7 pg (28.0-33.3); Mean Corpuscular Volume 92.3 fL (83.0-100.0); Mean Platelet Volume 9.2 fL (9.4-12.4); Monocytes # 0.8 K/mcL (0.0-1.3); Monocytes % 5.9 %; Neutrophils # 11.3 K/mcL (1.6-8.9); Platelet Count 150 K/mcL (140-400); Red Blood Count 5.22 M/mcL (4.19-5.50); Red Cell Distribution Width 15.5 % (11.5-14.5); Segmented Neutrophils % 85.8 %; White Blood Count 13.2 K/mcL (4.3-11.1)
[2019-07-24 22:46] LABS: Albumin 4.5 g/dL (3.5-5.7); Albumin/Globulin Ratio 1.7 (1.1-2.2); Bilirubin,Direct 0.2 mg/dL (0.0-0.2); Bilirubin,Indirect 0.9 mg/dL (0.0-1.0); Bilirubin,Total 1.1 mg/dL (0.3-1.0); Calcium 10.6 mg/dL (8.6-10.3); Globulin 2.7 g/dL (2.4-3.5); Potassium 4.9 mEq/L (3.5-5.1); Total Protein 7.2 g/dL (6.4-8.9)
[2019-07-24] MEDS ORDERED: Ertapenem 1,000 MG in 0.9 % Sodium Chloride Mini Bag 100 ML IVPB STA (23:07)
[2019-07-24] MEDS ORDERED: *HR* FentaNYL (PF) 100 MCG/2 ML VIAL IVP ONE (23:29)
[2019-07-24 23:41] LABS: Bilirubin,Urine Small (Negative); Blood,Urine Large (Negative); Clarity,Urine Turbid (Clear); Color,Urine Brown (Yellow); Glucose,Urine (UA) 100 mg/dL (Normal); Ketones,Urine Trace mg/dL (Negative); Leukocyte Esterase,Urine Trace (Negative); Nitrite,Urine Positive (Negative); Protein,Urine >=300 mg/dL (Neg-Trace); Urobilinogen,Urine Normal (Normal)
[2019-07-24 23:49] LABS: Squamous Epithelial Cell,Urine Few per lpf (None-Few)
[2019-07-24 23:50] LABS: Renal Epithelial Cells,Urine Few per hpf (None-Few)
[2019-07-24 23:51] LABS: RBC,Urine TNTC per hpf (0-3); WBC,Urine 0-3 per hpf (0-3)
[2019-07-24 23:52] LABS: Bacteria,Urine Few per hpf (None-Few)
[2019-07-25] MEDS ORDERED: cefTRIAXone 1,000 MG in 0.9 % Sodium Chloride Mini Bag 100 ML IVPB ONE (00:38)
[2019-07-25 00:51] LABS: INR 2.2; Prothrombin Time 25.4 Seconds (9.4-12.1)
[2019-07-25 00:54] LABS: Activated Partial Thrombo Time 40.3 Seconds (26.0-36.0)
[2019-07-25] MEDS ORDERED: Naloxone 0.4 MG/ML INJ IVP PRN ×3 (02:54→21:34)
[2019-07-25] MEDS ORDERED: *HR* Promethazine 25 MG/ML VIAL IVP PRN ×2 (03:58→21:34)
[2019-07-25] MEDS: 0.9 % Sodium Chloride 1,000 ML IVC SCH ×2 (04:51→15:32)
[2019-07-25] MEDS ORDERED: Morphine Sulfate 2 MG/ML SYRINGE IVP ONE (05:13)
[2019-07-25] MEDS: Insulin LISPRO 300 UNITS/3 ML VIAL SQ SCH ×3 (05:59→16:38)
[2019-07-25] MEDS ORDERED: amLODIPine 5 MG TABLET PO SCH (09:00)
[2019-07-25] MEDS ORDERED: Aspirin Enteric Coated 81 MG Tablet PO SCH ×2 (09:00→14:30)
[2019-07-25] MEDS ORDERED: Acetaminophen 325 MG TABLET PO PRN ×2 (15:03→21:34)
[2019-07-25] MEDS ORDERED: Isovue-300 50ML VIAL ONE (16:33)
[2019-07-25] MEDS ORDERED: *HR* FentaNYL (PF) 100 MCG/2 ML VIAL ONE (16:38)
[2019-07-25] MEDS ORDERED: *HR* Propofol 200 MG/20 ML VIAL IVP ONE (16:38)
[2019-07-25] MEDS ORDERED: Ondansetron 4 MG/2 ML VIAL ONE (16:42)
[2019-07-25] MEDS ORDERED: Lidocaine -MPF 2% 2 ML VIAL ONE (16:42)
[2019-07-25] MEDS ORDERED: Dexamethasone 4 MG/ML VIAL ONE ×2 (16:42→17:13)
[2019-07-25] MEDS ORDERED: *HR* HYDROmorphone (PF) 1 MG/ML SYRINGE IVP PRN (16:49)
[2019-07-25] MEDS ORDERED: *HR* OxyCODONE Immed Rel 5 MG TABLET PO PRN (16:49)
[2019-07-25] MEDS ORDERED: Ondansetron 4 MG/2 ML VIAL IVP PRN (16:49)
[2019-07-25 17:49] LABS: Acinetobacter baumannii by PCR Not Detected (Not Detect); Enterobacter cloacae Cmplx PCR Not Detected (Not Detect); Enterobacteriaceae by PCR Not Detected (Not Detect); Enterococcus by PCR Not Detected (Not Detect); Escherichia coli by PCR Not Detected (Not Detect); Staphylococcus aureus by PCR Not Detected (Not Detect); Staphylococcus by PCR DETECTED (Not Detect); Streptococcus agalactiae(B)PCR Not Detected (Not Detect); Streptococcus by PCR Not Detected (Not Detect); Streptococcus pneumoniae PCR Not Detected (Not Detect); Streptococcus pyogenes (A) PCR Not Detected (Not Detect); blaKPC Carbapenem-Resist Gene Not Detected (Not Detect); mecA Methicillin-Resist Gene DETECTED (Not Detect); vanA/B Vancomycin-Resist Genes Not Detected (Not Detect)
[2019-07-25 17:50] LABS: Candida albicans by PCR Not Detected (Not Detect); Candida glabrata by PCR Not Detected (Not Detect); Candida krusei by PCR Not Detected (Not Detect); Candida parapsilosis by PCR Not Detected (Not Detect); Candida tropicalis by PCR Not Detected (Not Detect); Klebsiella oxytoca by PCR Not Detected (Not Detect); Klebsiella pneumoniae by PCR Not Detected (Not Detect); Proteus by PCR Not Detected (Not Detect); Pseudomonas aeruginosa by PCR Not Detected (Not Detect); Serratia marcescens by PCR Not Detected (Not Detect)
[2019-07-25] MEDS ORDERED: Vancomycin 1,500 MG/265 ML IV.SOLN IVPB ONE ×2 (18:00→21:34)
[2019-07-25] MEDS ORDERED: *HR* Warfarin 3 MG TABLET PO ONE (18:00)
[2019-07-25] MEDS ORDERED: Vancomycin 1 EACH in 0.9 % Sodium Chloride 250 ML IVPB SCH (18:00)
[2019-07-25] MEDS ORDERED: Warfarin perPT PO PRN ×2 (18:00→21:34)
[2019-07-25] MEDS ORDERED: Acetaminophen IV 1,000 MG/100 ML INFUS..BTL ONE (20:42)
[2019-07-25] MEDS ORDERED: Insulin DETEMIR 100 UNIT/ML X5UNITS SQ SCH ×2 (21:00)
[2019-07-25] MEDS ORDERED: clonazePAM 1 MG TABLET PO SCH (21:00)
[2019-07-25] MEDS ORDERED: cefTRIAXone 1,000 MG in Water for inj. (sterile) 10 ML IVP SCH (21:00)
[2019-07-25] MEDS ORDERED: Vancomycin 1 EACH in 0.9 % Sodium Chloride 250 ML IVPB PRN (21:34)
[2019-07-25] MEDS ORDERED: 0.9 % Sodium Chloride 1,000 ML IVC SCH (21:34)
[2019-07-26] MEDS: Insulin LISPRO 300 UNITS/3 ML VIAL SQ SCH ×5 (00:10→21:11)
[2019-07-26 06:20] LABS: INR 2.8; Prothrombin Time 32.4 Seconds (9.4-12.1)
[2019-07-26 06:24] LABS: Basophils % 0.3 %; Hematocrit 44.2 % (37.5-50.1); Immature Granulocytes % 0.6 % (0-4); Lymphocytes # 0.4 K/mcL (0.6-4.6); Lymphocytes % 4.8 %; Mean Corpuscular HGB Conc 31.4 g/dL (31.6-35.5); Mean Corpuscular Hemoglobin 30.1 pg (28.0-33.3); Mean Corpuscular Volume 95.7 fL (83.0-100.0); Mean Platelet Volume 9.8 fL (9.4-12.4); Monocytes # 0.2 K/mcL (0.0-1.3); Monocytes % 2.6 %; Neutrophils # 8.2 K/mcL (1.6-8.9); Platelet Count 109 K/mcL (140-400); Red Blood Count 4.62 M/mcL (4.19-5.50); Red Cell Distribution Width 15.8 % (11.5-14.5); Segmented Neutrophils % 91.7 %
[2019-07-26 06:36] LABS: Calcium 9.6 mg/dL (8.6-10.3); Magnesium 1.9 mg/dL (1.6-2.6); Phosphorous 2.8 mg/dL (2.7-4.5); Potassium 5.2 mEq/L (3.5-5.1)
[2019-07-26 06:44] LABS: Hemoglobin 13.9 g/dL (12.9-16.9)
[2019-07-26] MEDS: Aspirin Enteric Coated 81 MG Tablet PO SCH (08:08)
[2019-07-26] MEDS: amLODIPine 5 MG TABLET PO SCH (08:08)
[2019-07-26] MEDS ORDERED: Sodium Bicarbonate 75 MEQ in 0.45 % Sodium Chloride 1,000 ML IVC SCH (12:00)
[2019-07-26] MEDS ORDERED: Vancomycin 1,500 MG/265 ML IV.SOLN IVPB ONE (14:01)
[2019-07-26] MEDS ORDERED: *HR* Warfarin 4 MG TABLET PO ONE (18:00)
[2019-07-26] MEDS: clonazePAM 1 MG TABLET PO SCH (21:08)
[2019-07-26] MEDS: cefTRIAXone 1,000 MG in Water for inj. (sterile) 10 ML IVP SCH (21:10)
[2019-07-26] MEDS: Insulin DETEMIR 100 UNIT/ML X5UNITS SQ SCH (21:10)
[2019-07-27 07:38] LABS: Basophils % 0.2 %; Eosinophils % 0.2 %; Hematocrit 43.7 % (37.5-50.1); Hemoglobin 14.6 g/dL (12.9-16.9); Immature Granulocytes % 0.7 % (0-4); Lymphocytes % 9.6 %; Mean Corpuscular HGB Conc 33.4 g/dL (31.6-35.5); Mean Corpuscular Hemoglobin 30.7 pg (28.0-33.3); Mean Platelet Volume 9.8 fL (9.4-12.4); Monocytes % 10.3 %; Platelet Count 109 K/mcL (140-400); Red Blood Count 4.75 M/mcL (4.19-5.50); Red Cell Distribution Width 15.5 % (11.5-14.5); White Blood Count 10.1 K/mcL (4.3-11.1)
[2019-07-27 07:53] LABS: INR 1.9; Prothrombin Time 21.6 Seconds (9.4-12.1)
[2019-07-27 07:58] LABS: Calcium 9.8 mg/dL (8.6-10.3); Potassium 4.3 mEq/L (3.5-5.1)
[2019-07-27] MEDS: Insulin LISPRO 300 UNITS/3 ML VIAL SQ SCH ×4 (08:22→21:13)
[2019-07-27] MEDS: amLODIPine 5 MG TABLET PO SCH (09:44)
[2019-07-27] MEDS: Aspirin Enteric Coated 81 MG Tablet PO SCH (09:44)
[2019-07-27] MEDS ORDERED: Vancomycin 1,500 MG/265 ML IV.SOLN IVPB ONE (14:38)
[2019-07-27] MEDS ORDERED: *HR* Warfarin 3 MG TABLET PO ONE (18:00)
[2019-07-27] MEDS: cefTRIAXone 1,000 MG in Water for inj. (sterile) 10 ML IVP SCH (21:14)
[2019-07-27] MEDS: clonazePAM 1 MG TABLET PO SCH (21:14)
[2019-07-27] MEDS: Insulin DETEMIR 100 UNIT/ML X5UNITS SQ SCH (21:15)
[2019-07-28 06:11] LABS: Red Blood Count 4.92 M/mcL (4.19-5.50)
[2019-07-28 06:12] LABS: INR 1.7; Prothrombin Time 19.3 Seconds (9.4-12.1)
[2019-07-28 06:14] LABS: Basophils % 0.5 %; Eosinophils # 0.4 K/mcL (0.0-0.6); Eosinophils % 4.4 %; Hematocrit 45.9 % (37.5-50.1); Immature Granulocytes % 0.5 % (0-4); Immature Platelets 3.4 % (1.1-6.1); Lymphocytes # 1.3 K/mcL (0.6-4.6); Mean Corpuscular HGB Conc 32.7 g/dL (31.6-35.5); Mean Corpuscular Hemoglobin 30.5 pg (28.0-33.3); Mean Corpuscular Volume 93.3 fL (83.0-100.0); Mean Platelet Volume 9.8 fL (9.4-12.4); Monocytes # 0.8 K/mcL (0.0-1.3); Monocytes % 9.7 %; Neutrophils # 5.4 K/mcL (1.6-8.9); Platelet Count 128 K/mcL (140-400); Red Cell Distribution Width 15.5 % (11.5-14.5); Segmented Neutrophils % 67.9 %; White Blood Count 7.9 K/mcL (4.3-11.1)
[2019-07-28 06:30] LABS: Calcium 9.9 mg/dL (8.6-10.3); Potassium 4.1 mEq/L (3.5-5.1)
[2019-07-28 07:36] VITALS: BP 125/68
[2019-07-28] MEDS: Insulin LISPRO 300 UNITS/3 ML VIAL SQ SCH (08:57)
[2019-07-28] MEDS: amLODIPine 5 MG TABLET PO SCH (08:59)
[2019-07-28] MEDS: Aspirin Enteric Coated 81 MG Tablet PO SCH (08:59)
[2019-07-28] MEDS ORDERED: Doxycycline 100 MG CAPSULE PO SCH (09:30)
[2019-07-28] MEDS ORDERED: *HR* Warfarin 7.5 MG TABLET PO ONE (18:00)
== END 2019-07-28 12:30 | disposition home or self-care (01) | DRG 854 ==
LOC: EMEROOARM 21:12 → 3BNU 21:12 → SUATTDRO 07-25 00:55 → 3BNU 07-25 01:15 → SUATTDRO 07-26 14:34 → 3ANU 07-26 16:08
PROVIDERS: ADMIT Family Medicine; ATTEND Internal Medicine

== ENCOUNTER 2020-04-28 08:26 | Inpatient (IN) ==
[2020-04-28 09:10] LABS: Basophils % 0.3 %; Eosinophils % 0.1 %; Hematocrit 52.9 % (37.5-50.1); Hemoglobin 17.3 g/dL (12.9-16.9); Immature Granulocytes % 0.5 % (0-4); Lymphocytes # 0.5 K/mcL (0.6-4.6); Lymphocytes % 3.8 %; Mean Corpuscular HGB Conc 32.7 g/dL (31.6-35.5); Mean Corpuscular Hemoglobin 30.5 pg (28.0-33.3); Mean Corpuscular Volume 93.3 fL (83.0-100.0); Mean Platelet Volume 9.4 fL (9.4-12.4); Monocytes # 0.4 K/mcL (0.0-1.3); Monocytes % 3.3 %; Platelet Count 175 K/mcL (140-400); Red Blood Count 5.67 M/mcL (4.19-5.50); Red Cell Distribution Width 14.9 % (11.5-14.5); White Blood Count 13.1 K/mcL (4.3-11.1)
[2020-04-28 09:15] LABS: INR 2.4; Prothrombin Time 27.2 Seconds (9.4-12.1)
[2020-04-28] MEDS ORDERED: 0.9 % Sodium Chloride 1,000 ML IVC ONE ×3 (09:22→11:24)
[2020-04-28] MEDS ORDERED: Morphine Sulfate 2 MG/ML SYRINGE IVP STA (09:30)
[2020-04-28 09:31] LABS: Albumin 4.4 g/dL (3.5-5.7); Albumin/Globulin Ratio 1.4 (1.1-2.2); Bilirubin,Total 0.9 mg/dL (0.3-1.0); Globulin 3.1 g/dL (2.4-3.5); Potassium 4.8 mEq/L (3.5-5.1); Total Protein 7.5 g/dL (6.4-8.9)
[2020-04-28 09:34] LABS: Troponin I 0.21 ng/mL (< 0.04)
[2020-04-28] MEDS ORDERED: Naloxone 0.4 MG/ML INJ IVP PRN (10:06)
[2020-04-28] MEDS ORDERED: Dextrose Gel 15 GM/37.5 ML TUBE PO PRN ×2 (11:36)
[2020-04-28] MEDS ORDERED: D5% in Water 1,000 ML IVC PRN (11:36)
[2020-04-28] MEDS ORDERED: *HR* Dextrose 50 % in Water (Vial) 50 ML VIAL IVP PRN (11:36)
[2020-04-28] MEDS: Insulin LISPRO 300 UNITS/3 ML VIAL SUBQ SCH ×2 (12:00→18:22)
[2020-04-28] MEDS: Piperacillin/Tazobactam 3.375 GM in 0.9 % Sodium Chloride Mini Bag 100 ML IVPB SCH (18:35)
[2020-04-28] MEDS: *HR* Heparin 5,000 UNIT/ML VIAL SQ SCH (18:36)
[2020-04-29] MEDS ORDERED: *HR* Heparin 5,000 UNIT/ML VIAL IVP PRN ×2 (00:33)
[2020-04-29] MEDS: Insulin LISPRO 300 UNITS/3 ML VIAL SUBQ SCH ×4 (01:00→16:57)
[2020-04-29 01:41] LABS: Basophils # 0.1 K/mcL (0.0-0.2); Basophils % 0.5 %; Eosinophils # 0.3 K/mcL (0.0-0.6); Eosinophils % 2.8 %; Hematocrit 52.7 % (37.5-50.1); Hemoglobin 17.3 g/dL (12.9-16.9); Immature Granulocytes % 0.2 % (0-4); Lymphocytes # 0.8 K/mcL (0.6-4.6); Lymphocytes % 7.7 %; Mean Corpuscular HGB Conc 32.8 g/dL (31.6-35.5); Mean Corpuscular Hemoglobin 30.7 pg (28.0-33.3); Mean Corpuscular Volume 93.6 fL (83.0-100.0); Mean Platelet Volume 9.7 fL (9.4-12.4); Monocytes # 0.9 K/mcL (0.0-1.3); Monocytes % 9.1 %; Neutrophils # 7.9 K/mcL (1.6-8.9); Platelet Count 168 K/mcL (140-400); Red Blood Count 5.63 M/mcL (4.19-5.50); Segmented Neutrophils % 79.7 %
[2020-04-29 01:47] LABS: INR 2.3; Prothrombin Time 25.5 Seconds (9.4-12.1)
[2020-04-29] MEDS: Piperacillin/Tazobactam 3.375 GM in 0.9 % Sodium Chloride Mini Bag 100 ML IVPB SCH ×3 (01:53→17:40)
[2020-04-29 02:01] LABS: Calcium 10.3 mg/dL (8.6-10.3); Potassium 4.3 mEq/L (3.5-5.1)
[2020-04-29] MEDS: Heparin 25,000UNIT/250ML 1/2NS 25,000 UNIT/250 ML IV.SOLN IVC SCH ×2 (02:12→22:20)
[2020-04-29] MEDS: amLODIPine 5 MG TABLET PO SCH (09:27)
[2020-04-29] MEDS: Aspirin 81 MG TAB.CHEW PO SCH (09:27)
[2020-04-29] MEDS ORDERED: Perflutren Lipid Microsphere 1.3 ML in 0.9 % Sodium Chloride 8.7 ML IVP PRN (11:07)
[2020-04-29] MEDS: *HR* Heparin 5,000 UNIT/ML VIAL SQ SCH (19:24)
[2020-04-30] MEDS: Piperacillin/Tazobactam 3.375 GM in 0.9 % Sodium Chloride Mini Bag 100 ML IVPB SCH ×4 (01:12→23:43)
[2020-04-30 02:27] LABS: Hematocrit 50.3 % (37.5-50.1); Hemoglobin 16.5 g/dL (12.9-16.9); Mean Corpuscular HGB Conc 32.8 g/dL (31.6-35.5); Mean Corpuscular Hemoglobin 31.1 pg (28.0-33.3); Mean Corpuscular Volume 94.9 fL (83.0-100.0); Mean Platelet Volume 10.2 fL (9.4-12.4); Platelet Count 151 K/mcL (140-400); White Blood Count 9.2 K/mcL (4.3-11.1)
[2020-04-30] MEDS: Insulin LISPRO 300 UNITS/3 ML VIAL SUBQ SCH ×5 (02:41→23:45)
[2020-04-30 02:49] LABS: Albumin 3.8 g/dL (3.5-5.7); Albumin/Globulin Ratio 1.4 (1.1-2.2); Bilirubin,Total 1.8 mg/dL (0.3-1.0); Calcium 10.1 mg/dL (8.6-10.3); Globulin 2.7 g/dL (2.4-3.5); Potassium 3.9 mEq/L (3.5-5.1); Total Protein 6.5 g/dL (6.4-8.9)
[2020-04-30] MEDS ORDERED: Ondansetron 4 MG/2 ML VIAL IVP PRN (10:00)
[2020-04-30 11:04] LABS: INR 1.9
[2020-04-30] MEDS: Aspirin 81 MG TAB.CHEW PO SCH (12:44)
[2020-04-30] MEDS: amLODIPine 5 MG TABLET PO SCH (12:44)
[2020-04-30] MEDS: Heparin 25,000UNIT/250ML 1/2NS 25,000 UNIT/250 ML IV.SOLN IVC SCH (17:35)
[2020-05-01] MEDS: Insulin LISPRO 300 UNITS/3 ML VIAL SUBQ SCH ×2 (05:44→12:21)
[2020-05-01 05:45] LABS: Hematocrit 51.1 % (37.5-50.1); Hemoglobin 16.7 g/dL (12.9-16.9); Mean Corpuscular HGB Conc 32.7 g/dL (31.6-35.5); Mean Corpuscular Volume 94.8 fL (83.0-100.0); Mean Platelet Volume 9.8 fL (9.4-12.4); Platelet Count 148 K/mcL (140-400); Red Blood Count 5.39 M/mcL (4.19-5.50); Red Cell Distribution Width 15.3 % (11.5-14.5); White Blood Count 10.2 K/mcL (4.3-11.1)
[2020-05-01 06:07] LABS: Albumin 3.6 g/dL (3.5-5.7); Albumin/Globulin Ratio 1.3 (1.1-2.2); Bilirubin,Total 1.3 mg/dL (0.3-1.0); Globulin 2.8 g/dL (2.4-3.5); Potassium 4.1 mEq/L (3.5-5.1); Total Protein 6.4 g/dL (6.4-8.9)
[2020-05-01 06:32] LABS: Heparin anti-factor XA UFH 0.29 IU/mL (0.30-0.70); INR 1.8
[2020-05-01] MEDS: Piperacillin/Tazobactam 3.375 GM in 0.9 % Sodium Chloride Mini Bag 100 ML IVPB SCH (07:20)
[2020-05-01] MEDS: Aspirin 81 MG TAB.CHEW PO SCH (09:56)
[2020-05-01] MEDS: amLODIPine 5 MG TABLET PO SCH (09:56)
[2020-05-01 10:57] VITALS: BP 127/76
== END 2020-05-01 16:51 | disposition home or self-care (01) | DRG 388 ==
LOC: EMEROOARM 08:26 → 3BNU 08:26 → SUATTDRO 10:06 → 3BNU 11:23
PROVIDERS: ADMIT Internal Medicine; ATTEND Registered Nurse